=== PATIENT | female | born 1985 | race Caucasian/White ===

== ENCOUNTER → 2024-08-09 | Outpatient (CLI) | payer BC, SELFPAY ==
--- NOTE | 2024-08-09 15:40 | MRI_ITS ---
PROCEDURE: BRAIN W/WO CONTRAST 08/09/2024 REASON FOR EXAM: DIZZINESS TECHNIQUE: Multiplanar and multisequence images were obtained. CONTRAST: [place] VOLUME: 23 mL COMPARISON: None. FINDINGS: Brain volume is age appropriate. The ventricles are not effaced or dilated. No midline shift, mass effect, or extra-axial fluid collections are identified. No abnormal brain parenchymal signal is seen with FLAIR imaging. No diffusion restriction is identified on diffusion-weighted imaging to suggest acute/subacute ischemic changes. No acute intracranial hemorrhage or acute territorial infarction is seen. No abnormal enhancement is seen. The bilateral cranial nerves 7 and 8 complexes are within normal limits with no abnormal enhancement or enhancing mass. Bilateral pre ganglionic cranial nerve 5 are unremarkable. Bilateral cerebellopontine angles are within normal limits. Bilateral mastoid air cells are unremarkable. Brainstem is intact. Corpus callosum, optic chiasm, suprasellar cistern, and cerebellar tonsils are within normal range. Major vascular flow voids are present. Bilateral orbits are intact. There is bidirectional nasal septal deviation with a left nasal septal spur. MRI/Brain W/WO Contrast IMPRESSION: 1. Bilateral internal auditory canals are within normal limits with no abnormal enhancement or enhancing mass. 2. No acute intracranial process or abnormal enhancement. Reading Location: [facility]
== END | disposition home or self-care (01) ==
LOC: MRI 15:27
PROVIDERS: PCP Family Medicine; Referring Provider Otolaryngology; Visit Provider Otolaryngology
DX: R42 Dizziness and giddiness (principal)
CPT/HCPCS: 70553; A9575